=== PATIENT | male | born 2000 | race Two or more races ===

== ENCOUNTER 2020-12-30 02:13 | Emergency (ER) | payer BC, SELFPAY ==
--- NOTE | 2020-12-30 02:19 | CTR_ITS ---
PROCEDURE INFORMATION: Exam: CT Head Without Contrast Exam date and time: 12/30/2020 2:32 AM Age: 20 years old Clinical indication: Injury or trauma; Fall; Blunt trauma (contusions or hematomas); Patient HX: Sustained blow to right side of head. C/O headahce with nausea. Repeated due to motion. Best scan submitted. TECHNIQUE: Imaging protocol: Computed tomography of the head without contrast. Radiation optimization: All CT scans at this facility use at least one of these dose optimization techniques: automated exposure control; mA and/or kV adjustment per patient size (includes targeted exams where dose is matched to clinical indication); or iterative reconstruction. COMPARISON: CT head wo con* [id number] 03/10/2018 12:30 PM RADIATION DOSE METRICS: Total DLP (mGy-cm): 1177.16 FINDINGS: Brain: Normal. No hemorrhage. Unremarkable white matter. No mass effect. Cerebral ventricles: No ventriculomegaly. Paranasal sinuses: Visualized sinuses are unremarkable. No fluid levels. Mastoid air cells: Visualized mastoid air cells are well aerated. Bones/joints: No acute findings. Soft tissues: Unremarkable. Other findings: Mild motion degradation. CT/CT head wo con* [id number] IMPRESSION: No acute intracranial abnormality. Mild motion degradation. Radiation Dose CTDIVOL = (mGy): DLP = 1177.16 (mGy-cm)
[2020-12-30 02:20] VITALS: BP 144/115; PULSE 125; RESP 18; TEMP 36.7; O2SAT 100; BMI 19.5
--- NOTE | 2020-12-30 02:20 | ED_ITS ---
HPI - Trauma General: Chief Complaint: Head Injury Stated Complaint: Hit head on pipe Time Seen by Provider: 12/30/20 02:14 Source: patient Mode of arrival: ambulatory Limitations: no limitations History of Present Illness: HPI narrative: Hnjwu-[id number]-ahi male states he was walking up and hit his head on a pipe. This happened 1 hour ago. He states he is had some nausea and a headache he rates a 7 out of 10. He denies any worsening proving factors. Denies passing out. Denies any neck pain. Denies any other injuries Associated symptoms: Reports headache(s); Denies abdominal pain, back pain, chest pain, chills, dental pain, fever(s), nausea or vomiting Review of Systems Const: Denies: fever(s), chills, body aches or change in appetite Eyes: Denies: blurry vision or eye discomfort ENMT: Denies: throat pain or dental pain Card: Denies: chest pain Resp: Denies: dyspnea GI: Denies: abdominal pain, nausea, vomiting or diarrhea : Denies: dysuria Musc: Denies: neck pain or back pain Skin/Breast: Denies: rash Neuro: Reports: headache(s) Psych: Denies: depression Jai/Lymph: Denies: easy bruising All/Imm: Denies: urticaria Physical Exam Const: COMMON NORMALS: no acute distress, patient oriented x3 and healthy appearing HENMT: COMMON NORMALS: normocephalic and atraumatic HEAD & SCALP: normocephalic and atraumatic Eye: COMMON NORMALS: Equal, round and reactive pupils present and EOMs intact bilaterally PUPIL: Yes Equal, round and reactive pupils present Neck/C-Spine: COMMON NORMALS: full ROM and supple Chest: COMMONS NORMALS: normal inspection of the chest and normal palpation of entire chest wall Resp: COMMON NORMALS: normal respiratory effort, No retractions, No use of accessory muscles and clear to auscultation bilaterally AUSCULTATION: clear to auscultation bilaterally Cardio: COMMON NORMALS: regular rate, regular rhythm and No murmurs present (Cardio) RATE: regular rate RHYTHM: regular rhythm GI: COMMON NORMALS: Normal to inspection, nondistended, normoactive bowel sounds present, Soft to palpation, non-tender and no masses PALPATION: Yes Soft to palpation Extremity: COMMON NORMALS: normal to inspection and full ROM Neuro: COMMON NORMALS: patient oriented x3, moves all extremities and no focal motor deficits Psych: COMMON NORMALS: mental status grossly normal, Normal thought process present and cooperative THOUGHT PROCESS: Normal thought process present Skin: COMMON NORMALS: no rashes or lesions noted and no wounds GENERAL SKIN EXAM: no rashes or lesions noted Course Vital Signs: Vital signs: Vital Signs Temperature 98.1 F 12/30/20 02:20 Pulse Rate 125 H 12/30/20 02:20 Respiratory Rate 18 12/30/20 02:20 Blood Pressure 144/115 12/30/20 02:20 Pulse Oximetry 100 12/30/20 02:20 MDM - Trauma MDM Narrative: Medical decision making narrative: Patient presents with a closed head injury is well-appearing here. His CT scan here is normal with no acute findings. He is stable for discharge and is to follow-up his PCP and return if worsening. Patient eloped just before I was going to discharge him the CT findings and everything here was normal. Discharge Plan Discharge Patient Disposition: Home Clinical Impression: Closed head injury Qualifiers: Encounter type: initial encounter Qualified Code(s): S09.90XA - Unspecified injury of head, initial encounter Condition: Stable Discharge Orders: Discharge ED (Routine); Ordered 12/30/20 Ordered By: Kimberly Browne Discharge Diet: Advance as tolerated Discharge Activity: Resume usual activity Patient Instructions: Minor Head Injury (ED) Coding Level of Care Code ED Quality Assurance Practice Manager for Norma Villagomez Exam Comprehensive
--- NOTE | 2020-12-30 03:19 | PC.NURSE ---
Pt transfered back to room from CT and upon talking with Dr. Herrera departed the Hospital without DC.
[2020-12-30 03:23] VITALS: BP 114/86; PULSE 98; RESP 18; TEMP 36.6; O2SAT 100
== END 2020-12-30 03:28 | disposition home or self-care (01) ==
PROVIDERS: Emergency Provider Emergency Medicine
DX: S09.8XXA Other specified injuries of head, initial encounter (principal); W22.09XA Striking against other stationary object, initial encounter
CPT/HCPCS: 70450; 99282

== ENCOUNTER 2022-09-25 11:04 | Emergency (ER) | payer MEDICAID, SELFPAY ==
[2022-09-25 11:09] VITALS: BP 141/85; PULSE 82; RESP 16; TEMP 36.8; O2SAT 97
--- NOTE | 2022-09-25 11:27 | ED_ITS ---
HPI - Animal Bite General: Chief Complaint: Animal Bite Stated Complaint: dog bite to face Time Seen by Provider: 09/25/22 11:06 Source: patient Mode of arrival: ambulatory Limitations: no limitations History of Present Illness: Patient is a 22-year-old male who presents to ED today with a complaint of a dog bite to his face that he sustained 2 days ago after he was over at a neighbor's house and trying to pet the dog. Dog is unknown on immunization status. It is an inside dog and reportedly was acting normal. Patient did not file a police report. He thinks the dog will be able to be quarantined but will need to speak to the owners again. He states he has had some swelling to the bite rodger. No redness, drainage. No fevers. Last tetanus was 7 years ago. complaint: animal bite Onset (ago): day(s) (2 days ago) Animal: dog Description of animal: household pet (neighbor's dog), immunizations unknown and appeared well Mechanism: bite Location: face Context: provoked Associated symptoms: Reports no associated symptoms; Deny chills or fever(s) Related Data: Patient tetanus UTD: Yes (7 years ago) Review of Systems Const: Denies: fever(s), chills, body aches, fatigue or malaise Skin/Breast: Reports: other (dog bite to face) [facility] ED PFSH: Medical History Psychiatric care Social History Smoking and tobacco status: current every day smoker Alcohol intake: current Physical Exam Const: COMMON NORMALS: no acute distress, patient oriented x3, no limitations, alert and well nourished GENERAL APPEARANCE: cooperative ORIENTATION/CONSCIOUSNESS: Yes awake, Yes oriented to person, Yes oriented to place and Yes oriented to time HENMT: COMMON NORMALS: normocephalic, atraumatic and Normal external nose present HEAD & SCALP: normal to inspection, normocephalic and atraumatic FACE & SINUS IMAGES: 1. small 3mm laceration; healing-occurred 2 days ago; no redness/drainage; localized swelling; does not appear to be through and through NOSE: Normal external nose present Resp: COMMON NORMALS: normal respiratory effort and clear to auscultation b ilaterally AUSCULTATION: clear to auscultation bilaterally Cardio: COMMON NORMALS: regular rate and regular rhythm RATE: regular rate RHYTHM: regular rhythm Neuro: COMMON NORMALS: patient oriented x3 SENSORIUM/ORIENTATION: Yes alert, Yes oriented to person, Yes oriented to place and Yes oriented to time Course Vital Signs: Vital signs: Vital Signs Temperature 98.3 F 09/25/22 11:09 Pulse Rate 82 09/25/22 11:09 Respiratory Rate 16 09/25/22 11:09 Blood Pressure 141/85 09/25/22 11:09 Pulse Oximetry 97 09/25/22 11:09 MDM - Animal Bite Medical Decision Making Tetanus updated. Wound is small and occurred over 48 hours ago-this is going to be best to leave open. He will be placed on abx. Recommend he file police report and they can have animal control help determine animal's immunization status and quarantine instructions. Return to ED precautions given. Discharge Plan Discharge Patient Disposition: Home Clinical Impression: Dog bite Qualifiers: Encounter type: initial encounter Qualified Code(s): W54.0XXA - Bitten by dog, initial encounter Condition: Stable Prescriptions: New amoxicillin-pot clavulanate 875-125 mg tablet 1 tab PO BID Qty: 14 0RF Discharge Orders: Discharge ED (Routine); Ordered 09/25/22 Ordered By: Cristina Orozco Patient Instructions: Animal Bite (ED) Coding Level of Care Code ED Bus Inspector for Norma Villagomez
[2022-09-25] MEDS: tetanus-diphtheria tox (adult) 0.5 mL SDV IM (12:03)
== END 2022-09-25 12:08 | disposition home or self-care (01) ==
PROVIDERS: Emergency Provider Physician Assistant
DX: S01.551A Open bite of lip, initial encounter (principal); W54.0XXA Bitten by dog, initial encounter; F17.210 Nicotine dependence, cigarettes, uncomplicated; Z23 Encounter for immunization
CPT/HCPCS: 90471; 90714; 99283

== ENCOUNTER 2022-11-09 07:14 | Emergency (ER) | payer BC, MEDICAID, SELFPAY ==
[2022-11-09] VITALS (78 sets, daily range): BP systolic 108–142; BP diastolic 60–96; PULSE 39–136; RESP 1–27; TEMP 36.9; O2SAT 96–100
--- NOTE | 2022-11-09 07:19 | CT_ITS ---
WS: [id number] CT HEAD NONCONTRAST HISTORY: closed head injury TECHNIQUE: Contiguous axial imaging performed through the brain in 3.0 mm imaging. Bone and soft tiss ue windows. Sagittal and coronal reformats reviewed. All CT scans at [facility] use at least one of these dose optimization techniques: automated exposure control; mA and/or kV adjustment per pa tient size (includes targeted exams where dose is matched to clinical indication); or iterative recon struction. DLP: 1525.76 mGy.cm COMPARISON: None available. No acute intracranial hemorrhage, midline shift or mass effect. No atrophy or prior infarcts or herniation. Ventricles: Normal size with no hydrocephalus. No inferior displacement of cerebellar tonsils. Paranasal sinuses: Air-fluid level RIGHT maxillary sinus. Mastoid air cells: Well pneumatized. Calvarium and scalp: Skull is intact with no soft tissue edema or swelling. CT/CT head wo con* [id number] IMPRESSION: 1. Negative head CT. 2. Small air-fluid level RIGHT maxillary sinus.
--- NOTE | 2022-11-09 07:20 | XR_ITS ---
WS: [id number] XR chest 1V portable [id number] REASON FOR EXAM: dyspnea/cough FINDINGS: Chest is unchanged compared to 03/10/2018. The heart and mediastinum are within normal limits. Calcified granulomatous disease bilaterally. No acute or subacute pulmonary parenchymal or pleural abnormality. Bony thorax is intact without significant abnormality. XR/XR chest 1V portable [id number] IMPRESSION: No acute chest abnormality.
--- NOTE | 2022-11-09 07:21 | ED_ITS ---
HPI - Seizure General: Chief Complaint: Trauma Stated Complaint: AMS Time Seen by Provider: 11/09/22 07:19 Source: patient Mode of arrival: EMS History of Present Illness: HPI Narrative: 22-year-old male brought in by EMS. He was noted to have seizures and witnessed by bystanders he was given 2 mg Ativan and then 2 more milligram where he appeared to have a second seizure. No seizure history per the family or the patient when he later woke up. Family members were present and there has been some difficulty in relationships amongst the family recently and they have not been allowing him to stay in their homes. So he had been staying at a homeless long-term last night. They were concerned today because they were not aware where he was that they were not able to find him last night. There was some comments made that he had threatened other family members and they wanted him to get evaluated for mental health. See medical decision making. Onset (ago): minute(s) Description of Episode: tonic-clonic movement Witnessed: Yes - by EMS Place: Homeless long-term Treatments prior to arrival: benzodiazepines Review of Systems General: Reports: ROS unobtainable due to medical condition and ROS unobtainable due to mental status [facility] ED PFSH: Medical History Psychiatric care Social History (System 11/09/22 @ 16:12 by Stefania Barakat) Smoking and tobacco status: current every day smoker Alcohol intake: current Supplemental [facility] Information: due to medical condition and due to mental status Physical Exam Const: GENERAL APPEARANCE: cooperative and comfortable ORIEN TATION/CONSCIOUSNESS: Yes confused HENMT: COMMON NORMALS: normocephalic, atraumatic and hearing grossly normal bilaterally HEAD & SCALP: normocephalic and atraumatic Resp: COMMON NORMALS: normal respiratory effort, No retractions, No use of accessory muscles and clear to auscultation bilaterally AUSCULTATION: clear to auscultation bilaterally Cardio: COMMON NORMALS: regular rate, regular rhythm and No murmurs present (Cardio) RATE: regular rate RHYTHM: regular rhythm GI: COMMON NORMALS: Soft to palpation and No hepatosplenomegaly present AUSCULTATION: Yes normoactive bowel sounds PALPATION: Yes Soft to palpation, No Tenderness to palpation present (GI), No Guarding due to palpation present (GI) and Yes No hepatosplenomegaly present Extremity: COMMON NORMALS: normal to inspection, capillary refill normal, no clubbing, cyanosis or edema, no calf tenderness and no pedal edema Skin: COMMON NORMALS: no rashes or lesions noted GENERAL SKIN EXAM: no rashes or lesions noted Course Vital Signs: Vital signs: Vital Signs Temperature 98.4 F 11/09/22 07:16 Pulse Rate 69 11/09/22 14:00 Respiratory Rate 12 11/09/22 14:00 Blood Pressure 126/93 11/09/22 14:30 Pulse Oximetry 100 11/09/22 14:00 Oxygen Delivery Me thod 11/09/22 14:00 MDM - Seizure MDM Narrative Medical decision making narrative: Patient was given 4 mg of Ativan for seizure before he arrived. He remains sedated for long period time eventually did wake up he was positive for methamphetamines and his CPK was slightly elevated he was given some IV fluids and monitored. Woke up he is awake and alert and active. There was some comments by the family that he has some psychiatric issues but he denied being homicidal or suicidal and family did not express any interest in having the patient 96d. Patient will be discharged home where he was given Keppra when he first arrived they did not discharge patient on Keppra with believe his seizure was secondary to methamphetamine use encourage abstinence from methamphetamine follow-up with neurology. Medical Records Attestation: I reviewed the patient's medical records. Lab Data Attestation: I reviewed the patient's lab results. 11/09/22 07:00 11/09/22 07:00 Labs: Radiology Impressions Head CT 11/09/22 07:19 IMPRESSION: 1. Negative head CT. 2. Small air-fluid level RIGHT maxillary sinus. Chest X-Ray 11/09/22 07:20 IMPRESSION: No acute chest abnormality. Cervical Spine CT 11/09/22 07:32 IMPRESSION: Normal cervical spine. Laboratory Results WBC 13.2 10^3/uL (4.0-10.0) H 11/09/22 07:00 RBC 4.43 10^6/uL (4.1-5.3) 11/09/22 07:00 Hgb 13.9 g/dL (11.7-16.6) 11/09/22 07:00 Hct 41.9 % (42.0-52.0) L 11/09/22 07:00 MCV 94.6 fl (80-94) H 11/09/22 07:00 MCH 31.4 pg (28.0-34.0) 11/09/22 07:00 MCHC 33.2 g/dL (30.0-36.0) 11/09/22 07:00 RDW 13.4 % (12.1-15.1) 11/09/22 07:00 Plt Count 215 10^3/cmm (130-400) 11/09/22 07:00 MPV 11.0 fL (7.4-10.4) H 11/09/22 07:00 Neut % (Auto) 80.0 % 11/09/22 07:00 Lymph % (Auto) 10.3 % 11/09/22 07:00 Long % (Auto) 7.1 % 11/09/22 07:00 Eos % (Auto) 1.5 % 11/09/22 07:00 Baso % (Auto) 0.7 % 11/09/22 07:00 Neut # (Auto) 10.53 10^3/uL (1.8-7.7) H 11/09/22 07:00 Lymph # (Auto) 1.4 10^3/uL (0.8-4.8) 11/09/22 07:00 Long # (Auto) 0.9 10^3/uL (0.2-0.9) 11/09/22 07:00 Eos # (Auto) 0.2 10^3/uL (0.0-0.8) 11/09/22 07:00 Baso # (Auto) 0.1 10^3/uL (0.0-0.1) 11/09/22 07:00 Nucleated RBC % (auto) 0 % 11/09/22 07:00 Nucleated RBCs # 0.0 /100WBC 11/09/22 07:00 Sodium 141 mmol/L (136-145) 11/09/22 07:00 Potassium 3.8 mmol/L (3.5-5.1) 11/09/22 07:00 Chloride 104 mmol/L (98-107) 11/09/22 07:00 Carbon Dioxide 21 mmol/L (22-29) L 11/09/22 07:00 Anion Gap 19.8 (5-19) H 11/09/22 07:00 BUN 17 mg/dL (6-20) 11/09/22 07:00 Creatinine 1.1 mg/dL (0.7-1.2) 11/09/22 07:00 GFR Calculation 83.0 mL/min (90-130) L 11/09/22 07:00 Glucose 115 mg/dL (65-115) 11/09/22 07:00 POC Glucose 91 mg/dL (70-110) 11/09/22 07:19 Calculated Osmolality 294 mOsm/kg (285-295) 11/09/22 07:00 Calcium 8.7 mg/dL (8.5-10.5) 11/09/22 07:00 Total Bilirubin 0.4 mg/dL (0.15-1.2) 11/09/22 07:00 AST 85 U/L (0-40) H 11/09/22 07:00 ALT 33 U/L (0-41) 11/09/22 07:00 Alkaline Phosphatase 85 U/L (40-130) 11/09/22 07:00 Creatine Kinase 348 U/L (39-308) H* 11/09/22 07:00 Total Protein 6.6 g/dL (6.6-8.7) 11/09/22 07:00 Albumin 4.1 g/dL (3.5-5.2) 11/09/22 07:00 Globulin 2.5 g/dL (1.3-4.6) 11/09/22 07:00 Urine Color Yellow (Yellow) 11/09/22 07:52 Urine Appearance Clear (CLEAR) 11/09/22 07:52 Urine pH 5 (5-7) 11/09/22 07:52 Ur Specific [place] 1.025 (1.005-1.030) 11/09/22 07:52 Urine Protein Trace (Negative) 11/09/22 07:52 Urine Glucose (UA) Norm (Normal) 11/09/22 07:52 Urine Ketones 1+ (Negative) H 11/09/22 07:52 Urine Blood 2+ (Negative) H 11/09/22 07:52 Urine Nitrate Negative (Negative) 11/09/22 07:52 Urine Bilirubin Neg (Negative) 11/09/22 07:52 Urine Urobilinogen Neg mg/dL (Negative) 11/09/22 07:52 Ur Leukocyte Esterase Negative (Negative) 11/09/22 07:52 Urine RBC 10-15 /hpf (0-2) H 11/09/22 07:52 Urine WBC 25-40 /hpf (0-5) H 11/09/22 07:52 Ur Squamous Epith Cells 0-4 /hpf (0-5) H 11/09/22 07:52 Amorphous Sediment Not Reportable 11/09/22 07:52 Urine Bacteria Trace /hpf (NONE) 11/09/22 07:52 Hyaline Casts 0-4 /lpf H 11/09/22 07:52 Urine Mucus 1+ /hpf 11/09/22 07:52 Salicylates < 0.3 mg/dL (3-10) L 11/09/22 07:00 Urine Opiates Screen Negative ng/mL (Negative) 11/09/22 07:52 Acetaminophen < 5.0 ug/mL (10-30) L 11/09/22 07:00 Ur Barbiturates Screen Negative ng/mL (Negative) 11/09/22 07:52 Ur Phencyclidine Scrn Negative ng/mL (Negative) 11/09/22 07:52 Ur Amphetamines Screen Positive ng/mL (Negative) H 11/09/22 07:52 U Benzodiazepines Scrn Negative ng/mL (Negative) 11/09/22 07:52 Urine Cocaine Screen Negative ng/mL (Negative) 11/09/22 07:52 U Marijuana (THC) Screen Positive ng/mL (Negative) H 11/09/22 07:52 Ethyl Alcohol < 10 mg/dL (0-10) 11/09/22 07:00 Discharge Plan Discharge Patient Disposition: Home Clinical Impression: Seizure Condition: Stable Prescriptions: New doxycycline hyclate 100 mg capsule 100 mg PO BID 14 Days Qty: 28 0RF No Action amoxicillin-pot clavulanate 875-125 mg tablet 1 tab PO BID Qty: 14 0RF Discharge Orders: Discharge ED (Routine); Ordered 11/09/22 Ordered By: Saturnino Mansfield Discharge Diet: Usual diet Discharge Activity: Increase activity as tolerated Patient Instructions: Opioid Safety, Pain Management Activity Restrictions/Additional Instructions: You are seen today after a seizure. The paramedics had given you Ativan which caused significant amount of sedation. Your seizure was likely triggered by the use of methamphetamines. Recommend that you avoid methamphetamines in the future. Case management make arrangements for follow-up with neurology. Coding Level of Care Code ED Floorperson for Norma Villagomez
[2022-11-09 07:25] LABS: Glucose Point of Care 91 mg/dL (70-110)
--- NOTE | 2022-11-09 07:32 | CT_ITS ---
WS: [id number] CT CERVICAL SPINE HISTORY: trauma TECHNIQUE: Contiguous 2.0 mm axial imaging performed through the entire cervical spine. Sagittal and coronal reformats also performed. All CT scans at [facility] use at least one of these dose o ptimization techniques: automated exposure control; mA and/or kV adjustment per patient size (include s targeted exams where dose is matched to clinical indication); or iterative reconstruction. DLP: 1525.76 mGy.cm COMPARISON: None available. Normal cervical alignment. Craniocervical junction, atlantodental interval and C1-C2 alignment is nor mal. C2-C3: Normal. C3-C4: Normal. C4-C5: Normal. C5-C6: Normal. C6-C7: Normal. C7-T1: Normal. Soft tissues are normal. Lung apices are clear. CT/CT cervical spin wo con* [id number] IMPRESSION: Normal cervical spine.
[2022-11-09 07:37] LABS: Basophils # 0.1 10^3/uL (0.0-0.1); Basophils % 0.7 %; Eosinophils # 0.2 10^3/uL (0.0-0.8); Eosinophils % 1.5 %; Hematocrit 41.9 % (42.0-52.0); Hemoglobin 13.9 g/dL (11.7-16.6); Lymphocytes # 1.4 10^3/uL (0.8-4.8); Lymphocytes % 10.3 %; Mean Corpuscular HGB Conc 33.2 g/dL (30.0-36.0); Mean Corpuscular Hemoglobin 31.4 pg (28.0-34.0); Mean Corpuscular Volume 94.6 fl (80-94); Monocytes # 0.9 10^3/uL (0.2-0.9); Monocytes % 7.1 %; Neutrophils # 10.53 10^3/uL (1.8-7.7); Nucleated Red Blood Cells % 0 %; Platelet Count 215 10^3/cmm (130-400); Red Blood Count 4.43 10^6/uL (4.1-5.3); Red Cell Distribution Width 13.4 % (12.1-15.1); White Blood Count 13.2 10^3/uL (4.0-10.0)
--- NOTE | 2022-11-09 07:46 | ECG_ITS ---
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 Measurements Intervals [place] Rate: 80 P: -48 DC: 131 QRS: 84 QRSD: 86 T: 73 QT: 375 QTc: 433 Interpretive Statements SINUS RHYTHM No previous ECG available for comparison Electronically Signed On 11-09-2022 16:39:05 CDT by Zak George M.D. [email or web address]
[2022-11-09 07:58] LABS: Alanine Aminotransferase 33 U/L (0-41); Albumin Level 4.1 g/dL (3.5-5.2); Alkaline Phosphatase 85 U/L (40-130); Anion Gap 19.8 (5-19); Aspartate Amino Transferase 85 U/L (0-40); Blood Urea Nitrogen 17 mg/dL (6-20); Calcium 8.7 mg/dL (8.5-10.5); Carbon Dioxide 21 mmol/L (22-29); Chloride 104 mmol/L (98-107); Globulin 2.5 g/dL (1.3-4.6); Glucose 115 mg/dL (65-115); Osmolality Calculated 294 mOsm/kg (285-295); Potassium 3.8 mmol/L (3.5-5.1); Sodium 141 mmol/L (136-145); Total Bilirubin 0.4 mg/dL (0.15-1.2); Total Protein 6.6 g/dL (6.6-8.7)
[2022-11-09 08:07] LABS: Acetaminophen < 5.0 ug/mL (10-30); Alcohol Level < 10 mg/dL (0-10); Salicylate < 0.3 mg/dL (3-10)
[2022-11-09 08:09] LABS: Creatine Phosphokinase 348 U/L (39-308)
[2022-11-09 08:11] LABS: Amphetamines Screen Urine Positive (Negative); Barbiturates Screen Urine Negative (Negative); Benzodiazepines Screen Urine Negative (Negative); Cocaine Screen Urine Negative (Negative); Opiate Screen Urine Negative (Negative); PCP Screen Urine Negative (Negative); THC Screen Urine Positive (Negative)
[2022-11-09 08:19] LABS: Add Urine Microscopic? YES; Bilirubin Urine Neg (Negative); Blood Urine 2+ (Negative); Glucose Urine UA Norm (Normal); Ketones Urine 1+ (Negative); Leukocyte Esterase Urine Negative (Negative); Nitrate Urine Negative (Negative); Protein Urine Trace (Negative); Specific Gravity, Urine 1.025 (1.005-1.030); Urine Appearance Clear (CLEAR); Urine Color Yellow (Yellow); Urobilinogen Urine Neg (Negative); pH Urine 5 (5-7)
[2022-11-09 08:37] LABS: Add Urine Culture? Yes; Bacteria Urine TRACE /hpf; Hyaline Casts Urine 0-4 /lpf; Mucus Urine 1+ /hpf; Squamous Epithelial Cell Urine 0-4 /hpf (0-5); WBC Urine 25-40 /hpf (0-5)
[2022-11-09] MEDS: sodium chloride 0.9% 1,000 ML 999 ML IV ×2 (09:52→11:29)
[2022-11-09] MEDS: cefTRIAXone 1,000 MG in sodium chloride 0.9% (plus) 50 ML 100 MG IV (10:05)
--- NOTE | 2022-11-10 10:10 | DCPLANNER ---
Addendum entered by Cha Huff 12/19/22 14:15: Patient had a followup appointment scheduled with neurology - patient did attend appointment. Addendum entered by Cha Huff 11/16/22 07:28: Patient has a follow up appointment scheduled for Sunday, December 04, 2022 at 1:[address] Arango at neurology. Original Note: manager servicing had message to schedule a follow up appointment for patient with neurology. manager servicing sent patients information to the front office staff at neurology. Patients information will be printed and reviewed. Clinic will call patient with appointment information.
--- NOTE | 2022-11-15 14:13 | DCPLANNER ---
medical care manager called patient due to no primary care physician - no answer at this time
== END 2022-11-09 15:05 | disposition home or self-care (01) ==
PROVIDERS: Emergency Provider Family Medicine
DX: R56.9 Unspecified convulsions (principal); F17.210 Nicotine dependence, cigarettes, uncomplicated
CPT/HCPCS: 36415; 36416; 70450; 71045; 72125; 80053; 80306; 80307; 81001; 82550; 82962; 85025; 87040; 87086; 93005; 96365; 99285; J0696; J7030

== ENCOUNTER 2022-11-21 11:28 | Emergency (ER) | payer BC, MEDICAID, SELFPAY ==
[2022-11-21 11:34] VITALS: BP 142/77; PULSE 85; TEMP 36.8; O2SAT 100; BMI 20.9
--- NOTE | 2022-11-21 11:49 | ED_ITS ---
HPI - Dental/Oral General: Chief complaint: Dental/Oral Stated complaint: Tooth pain Time Seen by Provider: 11/21/22 11:44 History of Present Illness: Patient is a 22-year-old male comes to the ED with left dental pain. Symptoms started several weeks ago. Patient says he is had this tooth infection now for over a year and it comes and goes. He was recently put on doxycycline for dental infection but says its not helping. Denies any other symptoms. Patient says he is currently trying to call around to get set up with a dentist. Associated symptoms: Denies fever(s) or odynophagia Review of Systems Const: Denies: fever(s), chills or fatigue Eyes: Denies: change in vision or eye discomfort ENMT: Reports: dental pain; Denies: throat pain, odynophagia, nasal discharge or nasal congestion Card: Denies: chest pain, palpitations, edema, swelling of feet/ankles, dyspnea on exertion or orthopnea Resp: Denies: dyspnea, productive cough or non-productive cough GI: Denies: abdominal pain, nausea, vomiting, diarrhea, constipation or hematochezia : Denies: flank pain, difficulty urinating, dysuria or hematuria Musc: Denies: neck pain, back pain or extremity swelling Skin/Breast: Denies: rash or new lesions Neuro: Denies: headache(s), numbness in extremities or weakness in extremities PFSH ED PFSH: Medical History (Updated 11/21/22 @ 15:13 by EMERSON Willoughby) No pertinent family history Psychiatric care Surgical History (Updated 11/21/22 @ 15:13 by EMERSON Willoughby) No pertinent past surgical history Social History Smoking and tobacco status: current every day smoker Alcohol intake: current Physical Exam Const: COMMON NORMALS: patient oriented x3 HENMT: COMMON NORMALS: normocephalic HEAD & SCALP: normocephalic MOUTH: Normal oral and palatal mucosa present TEETH & GINGIVA: Yes poor dentition THROAT: posterior oropharynx normal and uvula midline Neck/C-Spine: COMMON NORMALS: supple GENERAL: Yes normal visual inspection Resp: COMMON NORMALS: normal respiratory effort, No retractions, No use of accessory muscles and clear to auscultation bilaterally AUSCULTATION: clear to auscultation bilaterally Cardio: COMMON NORMALS: regular rate, regular rhythm, S1 normal heart sound present, S2 normal heart sound present, No gallops present (Cardio), No clicks present (Cardio), No murmurs present (Cardio) and Peripheral pulses 2+ throughout RATE: regular rate RHYTHM: regular rhythm HEART SOUNDS: S1 normal heart sound present and S2 normal heart sound present PERIPHERAL PULSES: Peripheral pulses 2+ throughout GI: COMMON NORMALS: Normal to inspection, nondistended, normoactive bowel sounds present, Soft to palpation, non-tender and no masses PALPATION: Yes Soft to palpation : COMMON NORMALS: Yes no CVA tenderness BLADDER/KIDNEY EXAM: Yes no CVA tenderness Back/Pelvis: COMMON NORMALS: no CVA tenderness Extremity: COMMON NORMALS: normal to inspection Neuro: COMMON NORMALS: patient oriented x3 GAIT: Yes Normal gait present Skin: GENERAL SKIN EXAM: dry skin Course Vital Signs: Vital signs: Vital Signs Temperature 98.2 F 11/21/22 11:34 Pulse Rate 85 11/21/22 11:34 Blood Pressure 142/77 11/21/22 11:34 Pulse Oximetry 100 11/21/22 11:34 Oxygen Delivery Me thod Room Air 11/21/22 11:34 MDM - Dental/Oral Medical Decision Making Patient is a 22-year-old male comes to the ED with left dental pain. Symptoms started several weeks ago. Patient says he is had this tooth infection now for over a year and it comes and goes. He was recently put on doxycycline for dental infection but says its not helping. Denies any other symptoms. Patient says he is currently trying to call around to get set up with a dentist. Vital stable. Patient appears nontoxic in no acute distress or pain. Patient has poor dentition. He was stable for discharge home diagnosed with dental infection. He was sent home with a prescription for clindamycin and told to follow-up with dentist as soon as possible to have dental infection treated. Patient understood agree with plan. Discharge Plan Discharge Patient Disposition: Home Clinical Impression: Dental infection Condition: Stable Prescriptions: New clindamycin HCl 150 mg capsule 300 mg PO QID 7 Days Qty: 56 0RF No Action amoxicillin-pot clavulanate 875-125 mg tablet 1 tab PO BID Qty: 14 0RF doxycycline hyclate 100 mg capsule 100 mg PO BID 14 Days Qty: 28 0RF Discharge Orders: Discharge ED (Routine); Ordered 11/21/22 Ordered By: Jerald Thomas Discharge Diet: Regular Discharge Activity: Increase activity as tolerated Patient Instructions: Dental Abscess (ED) Activity Restrictions/Additional Instructions: Follow-up with with dentist as soon as possible to have dental infection treated. Take medications as prescribed. Return to the ER or your medical provider if condition worsens. Please read and understand discharge instructions. Thank you for choosing [facility] for your healthcare needs today. Please realize this is an emergency room and that we are providing you with a medical screening exam and this may not be complete and all inclusive of all the testing and or work up that you may need to determine your ailment or severity of your illness. It is very important that you follow up as instructed or that you return to the Emergency Department should you have concerns or if your condition changes or worsens in any way. Coding Level of Care Code ED Ash Collector for Norma Villagomez
--- NOTE | 2022-11-24 12:48 | DCPLANNER ---
biofuels engineering manager called patient due to no primary care physician - no answer at this time
== END 2022-11-21 11:56 | disposition home or self-care (01) ==
PROVIDERS: Emergency Provider Physician Assistant
DX: K04.7 Periapical abscess without sinus (principal); F17.210 Nicotine dependence, cigarettes, uncomplicated
CPT/HCPCS: 99283

== ENCOUNTER 2023-01-24 02:45 | Inpatient (IN) | payer BC, MEDICAID, SELFPAY ==
[2023-01-24 02:46] VITALS: BMI 21.6
[2023-01-24 02:49] VITALS: BP 137/99; PULSE 109; TEMP 36.9; O2SAT 98
--- NOTE | 2023-01-24 03:59 | W.ED.ANXIETY ---
HPI - Anxiety General: Chief Complaint: Anxiety Stated Complaint: MHE Time Seen by Provider: 01/24/23 02:48 Source: patient and police Mode of arrival: other (police) Limitations: no limitations History of Present Illness: 20-year-old male presents here with police for paranoia. He states that his mother called the police as he had been watching TV and using his seeing things in the corner he states been having a hard time sleeping to. He appears very paranoid he carries very careful when he is answering questions and is slow to answer questions but does appear very paranoid. He denies SI or HI he does admit to some drug abuse. Associated symptoms: Deny chest pain, chills, fever(s), headache(s), nausea or vomiting Review of Systems Const: Denies: fever(s), chills, body aches or change in appetite Eyes: Denies: eye discomfort ENMT: Denies: throat pain or dental pain Card: Denies: chest pain Resp: Denies: dyspnea GI: Denies: abdominal pain, nausea, vomiting or diarrhea Musc: Denies: neck pain or back pain Skin/Breast: Denies: rash Neuro: Denies: headache(s) Psych: Reports: anxiety and paranoia; Denies: depression Physical Exam Const: COMMON NORMALS: patient oriented x3 HENMT: COMMON NORMALS: normocephalic and atraumatic HEAD & SCALP: normocephalic and atraumatic Neck/C-Spine: COMMON NORMALS: full ROM and supple Chest: COMMONS NORMALS: normal inspection of the chest and normal palpation of entire chest wall Resp: COMMON NORMALS: normal respiratory effort, No retractions, No use of accessory muscles and clear to auscultation bilaterally AUSCULTATION: clear to auscultation bilaterally Cardio: COMMON NORMALS: regular rate, regular rhythm and No murmurs present (Cardio) RATE: regular rate RHYTHM: regular rhythm GI: COMMON NORMALS: Normal to inspection, nondistended, normoactive bowel sounds present, Soft to palpation, non-tender and no masses PALPATION: Yes Soft to palpation Extremity: COMMON NORMALS: normal to inspection and full ROM Neuro: COMMON NORMALS: patient oriented x3, moves all extremities and no focal motor deficits Psych: COMMON NORMALS: mental status grossly normal and cooperative SPEECH: Yes minimal MOOD & AFFECT: Yes anxious and Yes fearful THOUGHT CONTENT: Yes delusions Skin: COMMON NORMALS: no rashes or lesions noted and no wounds GENERAL SKIN EXAM: no rashes or lesions noted Course Vital Signs: Vital signs: Vital Signs Temperature 98.3 F 01/24/23 15:27 Pulse Rate 92 01/24/23 15:27 Respiratory Rate 16 01/24/23 15:27 Blood Pressure 140/100 01/24/23 15:27 Pulse Oximetry 97 01/24/23 15:27 Oxygen Delivery Me thod Room Air 01/24/23 15:27 MDM - Anxiety Medical Decision Making Patient presents here with acute psychosis he is quite paranoid here I did have evaluated Dr. Hudson I spoke to Dr. Hudson who agrees that patient appears to be acutely psychotic he does not feel like he is safe on his own due to his paranoia is at this time. We will place patient under 96-hour hold and admit to the psychiatric unit. Lab Data 01/24/23 04:34 01/24/23 04:34 Laboratory Results WBC 12.5 10^3/uL (4.0-10.0) H 01/24/23 04:34 RBC 5.38 10^6/uL (4.1-5.3) H 01/24/23 04:34 Hgb 16.7 g/dL (11.7-16.6) H 01/24/23 04:34 Hct 50.5 % (42.0-52.0) 01/24/23 04:34 MCV 93.9 fl (80-94) 01/24/23 04:34 MCH 31.0 pg (28.0-34.0) 01/24/23 04:34 MCHC 33.1 g/dL (30.0-36.0) 01/24/23 04:34 RDW 12.8 % (12.1-15.1) 01/24/23 04:34 Plt Count 259 10^3/cmm (130-400) 01/24/23 04:34 MPV 10.2 fL (7.4-10.4) 01/24/23 04:34 Neut % (Auto) 70.8 % 01/24/23 04:34 Lymph % (Auto) 18.0 % 01/24/23 04:34 [place] % (Auto) 8.9 % 01/24/23 04:34 Eos % (Auto) 0.8 % 01/24/23 04:34 Baso % (Auto) 1.0 % 01/24/23 04:34 Neut # (Auto) 8.89 10^3/uL (1.8-7.7) H 01/24/23 04:34 Lymph # (Auto) 2.3 10^3/uL (0.8-4.8) 01/24/23 04:34 [place] # (Auto) 1.1 10^3/uL (0.2-0.9) H 01/24/23 04:34 Eos # (Auto) 0.1 10^3/uL (0.0-0.8) 01/24/23 04:34 Baso # (Auto) 0.1 10^3/uL (0.0-0.1) 01/24/23 04:34 Nucleated RBC % (auto) 0 % 01/24/23 04:34 Nucleated RBCs # 0.0 /100WBC 01/24/23 04:34 Sodium 139 mmol/L (136-145) 01/24/23 04:34 Potassium 3.8 mmol/L (3.5-5.1) 01/24/23 04:34 Chloride 99 mmol/L (98-107) 01/24/23 04:34 Carbon Dioxide 25 mmol/L (22-29) 01/24/23 04:34 Anion Gap 18.8 (5-19) 01/24/23 04:34 BUN 13 mg/dL (6-20) 01/24/23 04:34 Creatinine 1.1 mg/dL (0.7-1.2) 01/24/23 04:34 GFR Calculation 84.5 mL/min (90-130) L 01/24/23 04:34 Glucose 107 mg/dL (65-115) 01/24/23 04:34 Calculated Osmolality 289 mOsm/kg (285-295) 01/24/23 04:34 Calcium 9.9 mg/dL (8.5-10.5) 01/24/23 04:34 Total Bilirubin 1.4 mg/dL (0.15-1.2) H 01/24/23 04:34 AST 24 U/L (0-40) 01/24/23 04:34 ALT 10 U/L (0-41) 01/24/23 04:34 Alkaline Phosphatase 81 U/L (40-130) 01/24/23 04:34 Total Protein 8.2 g/dL (6.6-8.7) 01/24/23 04:34 Albumin 5.2 g/dL (3.5-5.2) 01/24/23 04:34 Globulin 3.0 g/dL (1.3-4.6) 01/24/23 04:34 Salicylates < 0.3 mg/dL (3-10) L 01/24/23 04:34 Acetaminophen < 5.0 ug/mL (10-30) L 01/24/23 04:34 Ethyl Alcohol < 10 mg/dL (0-10) 01/24/23 04:34 Discharge Plan Discharge Patient Disposition: Admitted As Inpatient Admit Provider: Blanco Hudson Clinical Impression: Acute psychosis Condition: Stable Coding Level of Care Code ED Irrigation Teacher for Norma Villagomez
--- NOTE | 2023-01-24 04:10 | PC.NURSE ---
Pt refused mediation on MAR at this time.
--- NOTE | 2023-01-24 04:15 | PC.NURSE ---
Dr. Browne, track laying supervisor, RNx3 to bedside to speak with pt about being placed on 96 hour hold. Pt became angry stating things such as he was going to leave. Verbal deescalation was used to calm pt down.
[2023-01-24 04:38] LABS: Basophils # 0.1 10^3/uL (0.0-0.1); Eosinophils # 0.1 10^3/uL (0.0-0.8); Eosinophils % 0.8 %; Hematocrit 50.5 % (42.0-52.0); Hemoglobin 16.7 g/dL (11.7-16.6); Lymphocytes # 2.3 10^3/uL (0.8-4.8); Mean Corpuscular HGB Conc 33.1 g/dL (30.0-36.0); Mean Corpuscular Volume 93.9 fl (80-94); Mean Platelet Volume 10.2 fL (7.4-10.4); Monocytes # 1.1 10^3/uL (0.2-0.9); Monocytes % 8.9 %; Neutrophils # 8.89 10^3/uL (1.8-7.7); Neutrophils % 70.8 %; Nucleated Red Blood Cells % 0 %; Platelet Count 259 10^3/cmm (130-400); Red Blood Count 5.38 10^6/uL (4.1-5.3); Red Cell Distribution Width 12.8 % (12.1-15.1); White Blood Count 12.5 10^3/uL (4.0-10.0)
[2023-01-24 04:59] LABS: Alanine Aminotransferase 10 U/L (0-41); Albumin Level 5.2 g/dL (3.5-5.2); Alkaline Phosphatase 81 U/L (40-130); Anion Gap 18.8 (5-19); Aspartate Amino Transferase 24 U/L (0-40); Blood Urea Nitrogen 13 mg/dL (6-20); Calcium 9.9 mg/dL (8.5-10.5); Carbon Dioxide 25 mmol/L (22-29); Chloride 99 mmol/L (98-107); Glomerular Filtration Rate 84.5 mL/min (90-130); Glucose 107 mg/dL (65-115); Osmolality Calculated 289 mOsm/kg (285-295); Potassium 3.8 mmol/L (3.5-5.1); Sodium 139 mmol/L (136-145); Total Bilirubin 1.4 mg/dL (0.15-1.2); Total Protein 8.2 g/dL (6.6-8.7)
--- NOTE | 2023-01-24 05:11 | PC.NURSE ---
Pt served copy of 96 Hour Rights paperwork by physical, this nurse and security. Pt refusing blood draw and making remarks as though he is going to try to leave regardless of 96 hour hold.
[2023-01-24 05:16] LABS: Acetaminophen < 5.0 ug/mL (10-30); Alcohol Level < 10 mg/dL (0-10); Salicylate < 0.3 mg/dL (3-10)
[2023-01-24 05:35] VITALS: BP 143/86; PULSE 108; RESP 16; O2SAT 96
--- NOTE | 2023-01-24 05:52 | PC.NURSE ---
RNx3 and security to bedside to have pt go back in room. Pt became upset that he could not be in the navar[place]te. Verbal deescalation used, pt cooperative and went back into room.
--- NOTE | 2023-01-24 05:53 | PC.NURSE ---
This RN has attempted multiple times to obtain urine sample, pt refused.
--- NOTE | 2023-01-24 07:47 | PC.NURSE ---
PT REFUSED PO ATIVAN. PT STATES THAT SINCE HE HAS BEEN HERE ALL WE HAVE TRIED TO DO IS GIVE HIM DRUGS AND A DRUG ADDICTION.
--- NOTE | 2023-01-24 08:10 | PC.NURSE ---
PT REQUESTED THIS NURSE CALL HIS GRANDMA AMBER OR [place]. PT GAVE THIS NURSE PHONE NUMBER TO CALL.
--- NOTE | 2023-01-24 08:15 | PC.NURSE ---
GRANDMOTHER CONTACTED PER PT REQUEST.
--- NOTE | 2023-01-24 08:37 | PC.NURSE ---
SECURITY CALLED. THIS NURSE COULD HEAR PT GETTING LOUDER TALKING TO ED SITTERS. PT WALKED OUT OF ROOM INTO [facility]. PT SEEMED UPSET. SECURITY AND THIS NURSE VERBALLY DEESCALATED SITUATION WITH OTHER STAFF PRESENCE. PT BACK IN ROOM.
--- NOTE | 2023-01-24 10:04 | W.PM.NPUH&PS ---
Providers/Chief Complaint Admitting Physician: Blanco Hudson MD Chief Complaint: MHE HPI NPU History of Present Illness Calvin Mccracken is a 22 year old male who presented to the Emergency Department with the following report: Chief Complaint: Anxiety Stated Complaint: MHE Time Seen by Provider: 01/24/23 02:48 Source: patient and police Mode of arrival: other (police) Limitations: no limitations History of Present Illness: 20-year-old male presents here with police for paranoia. He states that his mother called the police as he had been watching TV and using his seeing things in the corner he states been having a hard time sleeping to. He appears very paranoid he carries very careful when he is answering questions and is slow to answer questions but does appear very paranoid. He denies SI or HI he does admit to some drug abuse. Associated symptoms: Deny chest pain, chills, fever(s), headache(s), nausea or vomiting He was placed on a 96-hour hold and was admitted to the neuropsychiatric unit for definitive treatment of those issues. He presents today reporting he had been at home trying to sleep when he was feeling odd movements in his body that he could not explain and were freaking him out. His family was extremely by his behaviors and ended up calling for help. That is how he was brought here to the hospital. He reports that his mother was getting frustrated because he was seeing things in different parts of the house while they were trying to watch a movie and she did not see them and that was also an issue of contention. He denies significant cigarette smoking reports that he does drink alcohol from time to time and denies marijuana usage. He does report that he has had use of methamphetamine and he was unable or unwilling to say how recently. He did go on to say that he has not had any rehab stays or drug and alcohol treatments but that he needs it. He reports that is because his use at times has been out of control. He denies ever having a DUI or any other drug-related charges. He denies any past psychiatric hospitalizations, he reports he has never been on medication, he reports he is never been in any kind of psychiatric treatment. Many of the questions that we attempted to discuss he had it off with significant paranoia and wondering is why these questions were being asked. We discussed the fact that he had clear psychosis and odd behaviors to a level that his family was concerned meaning that they were higher than usual and we wanted to make sure that he was safe for discharge. He lobby that he was safe but the emergency room doctor felt concerned about his safety and placed him on a 96-hour hold and I concurred that this was the right decision. We discussed the fact that there would be likely benefit from him taking an antipsychotic to try to manage his symptoms. He was resistant to the idea of medication. He was focused on getting discharged sooner rather than later because he was concerned about his job. 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 We discussed the risks, benefits and alternatives of starting an antipsychotic and he understood and agreed to proceed as is documented in this note. PSYCHIATRIC HISTORY: As above. SUBSTANCE ABUSE HISTORY: As above.? FAMILY HISTORY: He reports addiction issues in the family. DEVELOPMENTAL HISTORY: The patient denied any issues with or delivery. He learned to walk and talk and met all developmental milestones on time. The patient did not report need for speech therapy, learning support, emotional support, or special education classes. PSYCHOSOCIAL HISTORY: Patient was willing to give limited information in the psychosocial sense. He did report that he lives with his mother and possibly another family member. 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 LEGAL HISTORY: He reports that he has possibly arrested a couple of times but he was guarded about the question. MEDICAL HISTORY: Denied. Meds NPU Home Medications Medication Instructions Recorded Confirmed Last Taken Type No Known Home Medications 01/24/23 01/24/23 Unknown History Allergies Allergy/AdvReac Type Severity Reaction Status Date / Time No Known Allergies Allergy Verified 01/24/23 16:20 Mental Status Exam MSE Comments: This is a well-nourished, well-developed, dark skinned male, in hospital scrubs, disheveled with limited grooming and eye contact. No abnormal movements, except for mild to moderate psychomotor agitation. Somewhat cooperative with exam in mild moderate distress. Speech was normal rate and volume. Mood described as fine; affect congruent. Thought process, organized. Thought content: patient denied any suicidal or homicidal ideation, there were no delusions reported but clear paranoia and somatic delusions noted, patient denied any auditory or visual hallucinations, but discussed issues consistent with visual and somatic hallucinations. Attention and concentration appeared limited and memory was unreliable, but none were formally tested. Alert and oriented times three. Insight and judgment are impaired. Impulse control is limited. Vitals/I&O/Wt Last Vital Signs Temp 98.3 F 01/24/23 15:27 Pulse 92 01/24/23 15:27 Resp 16 01/24/23 15:27 BP 140/100 01/24/23 15:27 Pulse Ox 97 01/24/23 15:27 O2 Del Method Room Air 01/24/23 15:27 Weight last 48 hrs Weight 70.307 kg Data NPU 01/24/23 04:34 01/24/23 04:34 A&P Assessment and plan (1) Acute psychosis: (2) Methamphetamine dependence: Plan This is a 22-year-old male, with genetic loading for addiction issues, who presents on a 96-hour hold, with active psychosis and likely active addiction. 1. Encourage initiation of an antipsychotic. 2. Encourage individual, group, and milieu therapy. 3. Continue q-15-minute checks for safety. 4. Recommend sober living treatment at the highest level of care to which the patient is willing to commit. Involuntary Hold Information 96 Hour Hold: 96 Hour Involuntary Admission: Yes 96 Hour Hold Ending Date: 01/30/23 96 Hour Hold Ending Time: 04:10 Attestations NPU Medical Necessity Statement*: Inpatient hospitalization is medically necessary and the clinically appropriate intervention, at this time. We will monitor medications and make changes as indicated. Patient will be in the hospital for over two midnights. Likely length of stay is three to five days. Coding Level of Care Code Acute Code for [facility] Fwd Diagnoses Acute psychosis F23 Methamphetamine dependence F15.20
--- NOTE | 2023-01-24 10:52 | PC.NURSE ---
PATIENT RESTING IN BED. PATIENT CALM. SITTERS PRESENT.
--- NOTE | 2023-01-24 13:18 | PC.NURSE ---
PATENT AWAKE SITTING IN BED FINISHSING LUNCH TRAY. PATIENT IS CALM AND COOPERATIVE
[2023-01-24 15:09] VITALS: BP 128/82; PULSE 75; RESP 18; O2SAT 97
[2023-01-24 15:27] VITALS: BP 140/100; PULSE 92; RESP 16; TEMP 36.8; O2SAT 97
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
[2023-01-24 19:14] LABS: Cocaine Screen Urine Negative (Negative); PCP Screen Urine Negative (Negative); THC Screen Urine Negative (Negative)
[2023-01-24 19:15] LABS: Amphetamines Screen Urine Positive (Negative); Barbiturates Screen Urine Negative (Negative); Benzodiazepines Screen Urine Negative (Negative); Opiate Screen Urine Negative (Negative)
[2023-01-24 21:26] VITALS: BP 117/58; PULSE 73; RESP 16; TEMP 36.8; O2SAT 98
[2023-01-25 06:00] VITALS: BP 124/78; PULSE 69; RESP 17; TEMP 36.7; O2SAT 99
[2023-01-25] MEDS: thiamine 100 mg Tablet PO (09:51)
[2023-01-25] MEDS: multivitamin therapeutic Tablet 1 TAB PO (09:52)
[2023-01-25] MEDS: folic acid 1 mg Tablet PO (09:52)
--- NOTE | 2023-01-25 10:09 | P.NPUPN_ITS ---
Subjective NPU Subjective: Patient presented today reporting that he has been to the [facility] but that he has to do walk-in and has generally left prior to accomplishing. He reports that when he was in long term that they did try Abilify and he reports that it was helpful. Additionally he endorsed a family history of psychotic illness including bipolar disorder. We also discussed the fact that from a diagnostic standpoint until he has 6 months to year sobriety it is impossible to tell whether this is a drug- induced psychosis versus yajaira secondary to bipolar disorder with possible exacerbation or worsening secondary to substance use. We discussed risk-benefit alternatives of starting Abilify and he understood and agreed to proceed as is documented in this note. Mental Status Exam MSE Comments: This is a well-nourished, well-developed, dark skinned male, in hospital scrubs, disheveled with limited grooming and eye contact. No abnormal movements, except for mild psychomotor agitation. Somewhat cooperative with exam in mild distress. Speech was normal rate and volume. Mood described as fine; affect congruent. Thought process, organized. Thought content: patient denied any suicidal or homicidal ideation, there were somatic and paranoid delusions reported and paranoia and somatic delusions noted, patient endorsed auditory and visual hallucinations. Attention and concentration appeared intact and memory was much more reliable, but none were formally tested. Alert and oriented times three. Insight and judgment are improving. Impulse control is limited. Vitals/I&O/Wt Last Vital Signs Temp 98.1 F 01/25/23 06:00 Pulse 69 01/25/23 06:00 Resp 17 01/25/23 06:00 BP 124/78 01/25/23 06:00 Pulse Ox 99 01/25/23 06:00 O2 Del Method Room Air 01/25/23 06:00 Weight last 48 hrs Weight 70.307 kg Data NPU 01/24/23 04:34 01/24/23 04:34 A&P Assessment and plan (1) Acute psychosis: (2) Methamphetamine dependence: Plan This is a 22-year-old male, with genetic loading for addiction issues, who presents on a 96-hour hold, with active psychosis and likely active addiction. 1. Initiate Abilify 5 mg p.o. daily with plan to increase to 10 mg p.o. every morning tomorrow. 2. Encourage individual, group, and milieu therapy. 3. Continue q-15-minute checks for safety. 4. Recommend sober living treatment at the highest level of care to which the patient is willing to commit. Involuntary Hold Information 96 Hour Hold: 96 Hour Involuntary Admission: Yes 96 Hour Hold Ending Date: 01/30/23 96 Hour Hold Ending Time: 04:10 Attestations NPU Medical Necessity Statement*: Inpatient hospitalization is medically necessary and the clinically appropriate intervention, at this time. We will monitor medications and make changes as indicated. Likely length of stay is three to five days. Coding Level of Care Code Acute Code for g Fwd Diagnoses Acute psychosis F23 Methamphetamine dependence F15.20
[2023-01-25 14:00] VITALS: BP 120/79; PULSE 75; TEMP 36.7; O2SAT 100
[2023-01-25] MEDS: nicotine 2 mg Gum BUCCAL (14:40)
[2023-01-25] MEDS: ARIPiprazole 10 mg Tablet 5 MG PO (18:46)
[2023-01-25 20:07] VITALS: BP 114/74; PULSE 85; RESP 14; TEMP 36.8; O2SAT 99
[2023-01-25] MEDS: trazodone 50 mg Tablet PO (20:17)
[2023-01-25] MEDS: hyDROXYzine 25 mg Capsule 50 MG PO (20:17)
[2023-01-26 06:00] VITALS: BP 106/67; PULSE 77; RESP 13; TEMP 36.4; O2SAT 100
[2023-01-26] MEDS: ARIPiprazole 10 mg Tablet PO (08:49)
[2023-01-26] MEDS: thiamine 100 mg Tablet PO (08:49)
[2023-01-26] MEDS: folic acid 1 mg Tablet PO (08:49)
[2023-01-26] MEDS: multivitamin therapeutic Tablet 1 TAB PO (08:50)
[2023-01-26 14:00] VITALS: BP 117/64; PULSE 84; RESP 20; TEMP 36.9; O2SAT 98
--- NOTE | 2023-01-26 18:04 | W.PM.NPUPNS ---
Subjective NPU Subjective: Patient presented today reporting that he is feeling okay. He denies any side effects to the medication. He denied having any somatic oddities or visual hallucinations which he had reported as recently as yesterday. He did get a visit from his family which he enjoyed. He continues to be focused on the possibility of discharge and we discussed the fact that he likely be here prior to his 96-hour hold ending if he continues at this recovery pace. Mental Status Exam MSE Comments: This is a well-nourished, well-developed, dark skinned male, in hospital scrubs, disheveled with limited grooming and eye contact. No abnormal movements. Mostly cooperative with exam in no acute distress. Speech was normal rate and volume. Mood described as fine; affect congruent. Thought process, organized. Thought content: patient denied any suicidal or homicidal ideation, there were no somatic and paranoid delusions reported and no delusions noted, patient denied auditory or visual hallucinations. Attention and concentration appeared intact and memory was much more reliable, but none were formally tested. Alert and oriented times three. Insight and judgment are improving. Impulse control is limited. Vitals/I&O/Wt Last Vital Signs Temp 97.9 F 01/26/23 20:58 Pulse 100 01/26/23 20:58 Resp 18 01/26/23 20:58 BP 115/82 01/26/23 20:58 Pulse Ox 99 01/26/23 20:58 O2 Del Method Room Air 01/26/23 14:00 Data NPU 01/24/23 04:34 01/24/23 04:34 A&P Assessment and plan (1) Acute psychosis: (2) Methamphetamine dependence: Plan This is a 22-year-old male, with genetic loading for addiction issues, who presents on a 96-hour hold, with active psychosis and likely active addiction. 1. Initiated Abilify 5 mg p.o. daily and increase to 10 mg p.o. every morning today 01/26/2023. 2. Encourage individual, group, and milieu therapy. 3. Continue q-15-minute checks for safety. 4. Recommend sober living treatment at the highest level of care to which the patient is willing to commit. Involuntary Hold Information 96 Hour Hold: 96 Hour Involuntary Admission: Yes 96 Hour Hold Ending Date: 01/30/23 96 Hour Hold Ending Time: 04:10 Attestations NPU Medical Necessity Statement*: Inpatient hospitalization is medically necessary and the clinically appropriate intervention, at this time. We will monitor medications and make changes as indicated. Likely length of stay is 2-3 days. Coding Level of Care Code Acute Code for Chg Fwd Diagnoses Acute psychosis F23 Methamphetamine dependence F15.20
[2023-01-26 20:58] VITALS: BP 115/82; PULSE 100; RESP 18; TEMP 36.6; O2SAT 99
[2023-01-27 06:00] VITALS: BP 120/67; PULSE 67; RESP 16; TEMP 36.7; O2SAT 100
[2023-01-27] MEDS: folic acid 1 mg Tablet PO (08:49)
[2023-01-27] MEDS: ARIPiprazole 10 mg Tablet PO (08:49)
[2023-01-27] MEDS: thiamine 100 mg Tablet PO (08:50)
[2023-01-27] MEDS: multivitamin therapeutic Tablet 1 TAB PO (08:50)
[2023-01-27] MEDS: nicotine 2 mg Gum BUCCAL ×2 (11:29→14:52)
[2023-01-27] MEDS: acetaminophen 325 mg Tablet 650 MG PO (11:29)
--- NOTE | 2023-01-27 11:52 | DCPLANNER ---
Patient was called due to no primary care physician - no answer at this time.
[2023-01-27 14:00] VITALS: BP 97/64; PULSE 111; RESP 16; TEMP 36.8; O2SAT 97
--- NOTE | 2023-01-27 17:04 | P.NPUPN_ITS ---
Subjective NPU Subjective: Patient presented today reporting that he is feeling better in general. Reports that he uses regulation skills to avoid getting drawn into people that are on the unit that can be quite irritating. He denies any side effects with the increase in the Abilify. Denies any delusional or perceptual disturbances. We discussed the likelihood of discharge on Sunday once we have all appointments and everything in place. Began discussion about possibility of long-acting injectable. Discussed the need to avoid methamphetamines and other drugs of abuse. Talked about family challenges and difficulty living where he lives. Mental Status Exam MSE Comments: This is a well-nourished, well-developed, dark skinned male, in hospital scrubs, disheveled with limited grooming and eye contact. No abnormal movements. Mostly cooperative with exam in no acute distress. Speech was normal rate and volume. Mood described as fine; affect congruent. Thought process, organized. Thought content: patient denied any suicidal or homicidal ideation, there were no somatic and paranoid delusions reported and no delusions noted, patient denied auditory or visual hallucinations. Attention and concentration appeared intact and memory was much more reliable, but none were formally tested. Alert and oriented times three. Insight and judgment are improving. Impulse control is limited. Vitals/I&O/Wt Last Vital Signs Temp 97.5 F L 01/27/23 21:41 Pulse 78 01/27/23 21:41 Resp 16 01/27/23 21:41 BP 139/72 01/27/23 21:41 Pulse Ox 96 01/27/23 21:41 O2 Del Method Room Air 01/27/23 14:00 Data NPU 01/24/23 04:34 01/24/23 04:34 A&P Assessment and plan (1) Acute psychosis: (2) Methamphetamine dependence: Plan This is a 22-year-old male, with genetic loading for addiction issues, who presents on a 96-hour hold, with active psychosis and likely active addiction. 1. Initiated Abilify 5 mg p.o. daily and increased to 10 mg p.o. every morning 01/26/2023. 2. Encourage individual, group, and milieu therapy. 3. Continue q-15-minute checks for safety. 4. Recommend sober living treatment at the highest level of care to which the patient is willing to commit. Involuntary Hold Information 2 96 Hour Hold: 96 Hour Involuntary Admission: Yes 96 Hour Hold Ending Date: 01/30/23 96 Hour Hold Ending Time: 04:10 Attestations NPU Medical Necessity Statement*: Inpatient hospitalization is medically necessary and the clinically appropriate intervention, at this time. We will monitor medications and make changes as indicated. Likely length of stay is 1-3 days. Coding Level of Care Code Acute Code for Chg Fwd Diagnoses Acute psychosis F23 Methamphetamine dependence F15.20
[2023-01-27] MEDS: trazodone 50 mg Tablet PO (20:57)
[2023-01-27 21:41] VITALS: BP 139/72; PULSE 78; RESP 16; TEMP 36.4; O2SAT 96
[2023-01-28 06:00] VITALS: RESP 18
[2023-01-28] MEDS: ARIPiprazole 10 mg Tablet PO (08:56)
[2023-01-28] MEDS: multivitamin therapeutic Tablet 1 TAB PO (08:56)
[2023-01-28] MEDS: thiamine 100 mg Tablet PO (08:56)
[2023-01-28] MEDS: folic acid 1 mg Tablet PO (08:56)
--- NOTE | 2023-01-28 10:33 | P.NPUPN_ITS ---
Subjective NPU Subjective: Patient presented today reporting that he is doing okay. He denied any psychotic symptoms and denied any side effects to the medications. We discussed working with the social work team tomorrow for appropriate outpatient follow-ups and discussing the possibility of a long-acting injectable. We also discussed the importance of sobriety and resources to assist him in maintaining his avoida nce of amphetamines. Mental Status Exam MSE Comments: This is a well-nourished, well-developed, dark skinned male, in hospital scrubs, disheveled with limited grooming and eye contact. No abnormal movements. Mostly cooperative with exam in no acute distress. Speech was normal rate and volume. Mood described as fine; affect congruent. Thought process, organized. Thought content: patient denied any suicidal or homicidal ideation, there were no somatic and paranoid delusions reported and no delusions noted, patient denied auditory or visual hallucinations. Attention and concentration appeared intact and memory was much more reliable, but none were formally tested. Alert and oriented times three. Insight and judgment are improving. Impulse control is limited. Vitals/I&O/Wt Last Vital Signs Temp 97.5 F L 01/27/23 21:41 Pulse 78 01/27/23 21:41 Resp 18 01/28/23 06:00 BP 139/72 01/27/23 21:41 Pulse Ox 96 01/27/23 21:41 O2 Del Method Room Air 01/27/23 14:00 Weight last 48 hrs Weight 79.946 kg Data NPU 01/24/23 04:34 01/24/23 04:34 A&P Assessment and plan (1) Acute psychosis: (2) Methamphetamine dependence: Plan This is a 22-year-old male, with genetic loading for addiction issues, who presents on a 96-hour hold, with active psychosis and likely active addiction. 1. Initiated Abilify 5 mg p.o. daily and increased to 10 mg p.o. every morning 01/26/2023. 2. Encourage individual, group, and milieu therapy. 3. Continue q-15-minute checks for safety. 4. Recommend sober living treatment at the highest level of care to which the patient is willing to commit. Involuntary Hold Information 96 Hour Hold: 96 Hour Involuntary Admission: Yes 96 Hour Hold Ending Date: 01/30/23 96 Hour Hold Ending Time: 04:10 Attestations NPU Medical Necessity Statement*: Inpatient hospitalization is medically necessary and the clinically appropriate intervention, at this time. We will monitor medications and make changes as indicated. Likely length of stay is 1-2 days. Coding Level of Care Code Acute Code for Chg Fwd Diagnoses Acute psychosis F23 Methamphetamine dependence F15.20
[2023-01-28] MEDS: nicotine 2 mg Gum BUCCAL (11:38)
[2023-01-28 14:00] VITALS: BP 122/82; PULSE 86; RESP 16; TEMP 36.8; O2SAT 97
[2023-01-28 20:28] VITALS: BP 128/78; PULSE 90; RESP 18; TEMP 36.3; O2SAT 100
[2023-01-28] MEDS: trazodone 50 mg Tablet PO (21:50)
[2023-01-28] MEDS: nicotine 4 mg lozenge MUCOUS MEM (21:52)
[2023-01-29 06:00] VITALS: BP 115/68; PULSE 78; RESP 16; O2SAT 98
[2023-01-29] MEDS: thiamine 100 mg Tablet PO (08:18)
[2023-01-29] MEDS: folic acid 1 mg Tablet PO (08:18)
[2023-01-29] MEDS: ARIPiprazole 10 mg Tablet PO (08:18)
[2023-01-29] MEDS: multivitamin therapeutic Tablet 1 TAB PO (08:18)
[2023-01-29] MEDS: nicotine 4 mg lozenge MUCOUS MEM (10:54)
[2023-01-29 11:44] VITALS: BP 115/68; PULSE 78; RESP 16; O2SAT 98
[2023-01-29] MEDS: nicotine 21 mg Patch 1 PATCH TRANSDERMA (13:11)
--- NOTE | 2023-01-29 13:27 | PC.NURSE ---
patient removed nicotine patch at 1320 because he didn't like how it made him feel. patient feeling sick to his stomach.
[2023-01-29 14:00] VITALS: BP 138/90; PULSE 98; RESP 16; TEMP 36.3; O2SAT 97
--- NOTE | 2023-01-29 14:07 | P.NPUDS_ITS ---
Diagnoses at Discharge Discharge Diagnosis (1) Acute psychosis: (2) Methamphetamine dependence: Reason for Visit Reason for Visit: MHE Brief History: History of Present Illness Calvin Mccracken is a 22 year old male who presented to the Emergency Department with the following report: Chief Complaint: Anxiety Stated Complaint: MHE Time Seen by Provider: 01/24/23 02:48 Source: patient and police Mode of arrival: other (police) Limitations: no limitations History of Present Illness:?? 20-year-old male presents here with police for paranoia.? He states that his mother called the police as he had been watching TV and using his seeing things in the corner he states been having a hard time sleeping to.? He appears very paranoid he carries very careful when he is answering questions and is slow to answer questions but does appear very paranoid.? He denies SI or HI he does admit to some drug abuse. ? Associated symptoms: Deny chest pain, chills, fever(s), headache(s), nausea or vomiting He was placed on a 96-hour hold and was admitted to the neuropsychiatric unit for definitive treatment of those issues. He presents today reporting he had been at home trying to sleep when he was feeling odd movements in his body that he could not explain and were freaking him out. His family was extremely by his behaviors and ended up calling for help.? That is how he was brought here to the hospital.? He reports that his mother was getting frustrated because he was seeing things in different parts of the house while they were trying to watch a movie and she did not see them and that was also an issue of contention.? He denies significant cigarette smoking reports that he does drink alcohol from time to time and denies marijuana usage.? He does report that he has had use of methamphetamine and he was unable or unwilling to say how recently.? He did go on to say that he has not had any rehab stays or drug and alcohol treatments but that he needs it.? He reports that is because his use at times has been out of control.? He denies ever having a DUI or any other drug-related charges.? He denies any past psychiatric hospitalizations, he reports he has never been on medication, he reports he is never been in any kind of psychiatric treatment.? Many of the questions that we attempted to discuss he had it off with significant paranoia and wondering is why these questions were being asked.? We discussed the fact that he had clear psychosis and odd behaviors to a level that his family was concerned meaning that they were higher than usual and we wanted to make sure that he was safe for discharge.? He lobby that he was safe but the emergency room doctor felt concerned about his safety and placed him on a 96- hour hold and I concurred that this was the right decision.? We discussed the fact that there would be likely benefit from him taking an antipsychotic to try to manage his symptoms.? He was resistant to the idea of medication.? He was focused on getting discharged sooner rather than later because he was concerned about his job.? 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 We discussed the risks, benefits and alternatives of starting an antipsychotic and he understood and agreed to proceed as is documented in this note. PSYCHIATRIC HISTORY: As above. SUBSTANCE ABUSE HISTORY: As above.? FAMILY HISTORY: He reports addiction issues in the family. DEVELOPMENTAL HISTORY: The patient denied any issues with or delivery. He learned to walk and talk and met all developmental milestones on time. The patient did not report need for speech therapy, learning support, emotional support, or special education classes. PSYCHOSOCIAL HISTORY: Patient was willing to give limited information in the psychosocial sense.? He did report that he lives with his mother and possibly another family member.? 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 LEGAL HISTORY: He reports that he has possibly arrested a couple of times but he was guarded about the question. MEDICAL HISTORY: Denied. Hospital Course Hospital Course He slowly acclimated to the individual, group and milieu therapies. He was initially resistant to medications but ultimately was able to set the diagnosis of psychosis and the fact that he could not delineate whether this was drug- induced, amphetamines, exacerbated by methamphetamines or was just psychotic illness. We started Abilify and titrated t0 10 milligrams daily and gave trazodone and thiamine as well. He had significant improvement. He worked with the social work team for appropriate discharge planning and aftercare arrangements including for his addiction. He was able to contract for safety outside of the hospital prior to discharge. During the hospitalization, patient had routine laboratory studies which were within normal limits except for few outliers.? Additionally there was a general medical evaluation which was also within normal limits and revealed no new acute processes. Discharge Summary: At the time of discharge, he denied psychosis or lethality.? Mood and anxiety were well managed.? Patient endorsed a plan to avoid all drugs of abuse and follow-up with the aftercare recommendations of the treatment team.? Patient was evaluated and deemed to be absent credible lethality, and had achieved the maximum benefit from an inpatient hospitalization, so was discharged. Involuntary Hold Information 96 Hour Hold: 96 Hour Involuntary Admission: Yes 96 Hour Hold Ending Date: 01/30/23 96 Hour Hold Ending Time: 04:10 Mental Status Exam MSE Comments: This is a well-nourished, well-developed, dark skinned male, in hospital scrubs, disheveled with limited grooming and eye contact. No abnormal movements. Mostly cooperative with exam in no acute distress. Speech was normal rate and volume. Mood described as fine; affect congruent. Thought process, organized. Thought content: patient denied any suicidal or homicidal ideation, there were no somatic and paranoid delusions reported and no delusions noted, patient denied auditory or visual hallucinations. Attention and concentration appeared intact and memory was much more reliable, but none were formally tested. Alert and oriented times three. Insight and judgment are improving. Impulse control is limited. Discharge Data Studies Completed and Pending: Laboratory Results WBC 12.5 10^3/uL (4.0 -10.0) H 01/24/23 04:34 RBC 5.38 10^6/uL (4.1 -5.3) H 01/24/23 04:34 Hgb 16.7 g/dL (11.7-1 6.6) H 01/24/23 04:34 Hct 50.5 % (42.0-52.0 ) 01/24/23 04:34 MCV 93.9 fl (80-94) 01/24/23 04:34 MCH 31.0 pg (28.0-34. 0) 01/24/23 04:34 MCHC 33.1 g/dL (30.0-3 6.0) 01/24/23 04:34 RDW 12.8 % (12.1-15.1 ) 01/24/23 04:34 Plt Count 259 10^3/cmm (130 -400) 01/24/23 04:34 MPV 10.2 fL (7.4-10.4 ) 01/24/23 04:34 Neut % (Auto) 70.8 % 01/24/23 04:34 Lymph % (Auto) 18.0 % 01/24/23 04:34 Gove % (Auto) 8.9 % 01/24/23 04:34 Eos % (Auto) 0.8 % 01/24/23 04:34 Baso % (Auto) 1.0 % 01/24/23 04:34 Neut # (Auto) 8.89 10^3/uL (1.8 -7.7) H 01/24/23 04:34 Lymph # (Auto) 2.3 10^3/uL (0.8- 4.8) 01/24/23 04:34 Gove # (Auto) 1.1 10^3/uL (0.2- 0.9) H 01/24/23 04:34 Eos # (Auto) 0.1 10^3/uL (0.0- 0.8) 01/24/23 04:34 Baso # (Auto) 0.1 10^3/uL (0.0- 0.1) 01/24/23 04:34 Nucleated RBC % (a uto) 0 % 01/24/23 04:34 Nucleated RBCs # 0.0 /100WBC 01/24/23 04:34 Sodium 139 mmol/L (136-1 45) 01/24/23 04:34 Potassium 3.8 mmol/L (3.5-5 .1) 01/24/23 04:34 Chloride 99 mmol/L (98-107 ) 01/24/23 04:34 Carbon Dioxide 25 mmol/L (22-29) 01/24/23 04:34 Anion Gap 18.8 (5-19) 01/24/23 04:34 BUN 13 mg/dL (6-20) 01/24/23 04:34 Creatinine 1.1 mg/dL (0.7-1. 2) 01/24/23 04:34 GFR Calculation 84.5 mL/min (90-1 30) L 01/24/23 04:34 Glucose 107 mg/dL (65-115 ) 01/24/23 04:34 Calculated Osmolal ity 289 mOsm/kg (285- 295) 01/24/23 04:34 Calcium 9.9 mg/dL (8.5-10 .5) 01/24/23 04:34 Total Bilirubin 1.4 mg/dL (0.15-1 .2) H 01/24/23 04:34 AST 24 U/L (0-40) 01/24/23 04:34 ALT 10 U/L (0-41) 01/24/23 04:34 Alkaline Phosphata se 81 U/L (40-130) 01/24/23 04:34 Total Protein 8.2 g/dL (6.6-8.7 ) 01/24/23 04:34 Albumin 5.2 g/dL (3.5-5.2 ) 01/24/23 04:34 Globulin 3.0 g/dL (1.3-4.6 ) 01/24/23 04:34 Salicylates < 0.3 mg/dL (3-10 ) L 01/24/23 04:34 Urine Opiates Scre en Negative ng/mL (N egative) 01/24/23 18:35 Acetaminophen < 5.0 ug/mL (10-3 0) L 01/24/23 04:34 Ur Barbiturates Sc reen Negative ng/mL (N egative) 01/24/23 18:35 Ur Phencyclidine S crn Negative ng/mL (N egative) 01/24/23 18:35 Ur Amphetamines Sc reen Positive ng/mL (N egative) H 01/24/23 18:35 U Benzodiazepines Scrn Negative ng/mL (N egative) 01/24/23 18:35 Urine Cocaine Scre en Negative ng/mL (N egative) 01/24/23 18:35 U Marijuana (THC) Screen Negative ng/mL (N egative) 01/24/23 18:35 Ethyl Alcohol < 10 mg/dL (0-10) 01/24/23 04:34 Vitals: Last Vital Signs Temp 97.4 F L 01/28/23 20:28 Pulse 78 01/29/23 11:44 Resp 16 01/29/23 11:44 BP 115/68 01/29/23 11:44 Pulse Ox 98 01/29/23 11:44 O2 Del Method Room Air 01/29/23 06:00 Discharge Plan Discharge Patient Disposition: Home Condition: Stable Prescriptions: New trazodone 50 mg Tablet 50 mg PO BEDTIME PRN (Reason: Sleep) 30 Days Qty: 30 1RF aripiprazole 10 mg Tablet 10 mg PO DAILY 30 Days Qty: 30 1RF Vitamin B-1 (mononitrate) 100 mg Tablet 100 mg PO DAILY 30 Days Qty: 30 1RF No Action thiamine HCl (vitamin B1) 50 mg tablet 50 mg PO DAILY trazodone 50 mg tablet 50 mg PO .HS PRN (Reason: insomnia) naltrexone 50 mg tablet 50 mg PO DAILY Qty: 30 1RF aripiprazole [Abilify] 5 mg tablet 5 mg PO .HS Qty: 30 1RF fluoxetine [Prozac] 20 mg capsule 20 mg PO DAILY Qty: 30 1RF Discharge Orders: Discharge Order (Routine); Ordered 01/29/23 Ordered By: Blanco Hudson Referrals: [facility] [Other] ([facility] for outpatient will be in February. Call for date and time. ) Yuriy Arango MD [Physician] - 04/02/23 3:15 pm (Follow up) Vivek Vang MD [Physician] - 01/31/23 8:30 am (Follow up) Discharge Diet: Regular Discharge Activity: Resume usual activity Patient Instructions: Psychotic Disorder (GEN), Opioid Safety Discharge Attestations NPU Time Spent in Discharge Care*: less than 30 min Specific Discharge Activities: Specific discharge activities: educating patient, discussing with community case manager/social workers/dc planners, documenting/other paperwork and evaluating patient/reviewing data Coding Level of Care Code Acute Chg FW DC note Diagnoses Acute psychosis F23 Methamphetamine dependence F15.20
[2023-01-29] MEDS: nicotine 2 mg Gum BUCCAL (15:43)
== END 2023-01-29 16:56 | disposition home or self-care (01) | DRG 885 ==
LOC: ER 04:14 → ER IP 05:22 → NP 16:45
PROVIDERS: Admitting Provider Psychiatry & Neurology Psychiatry; Emergency Provider Emergency Medicine; Visit Provider Psychiatry & Neurology Psychiatry
DX: F23 Brief psychotic disorder (principal); F15.20 Other stimulant dependence, uncomplicated
CPT/HCPCS: 80053; 80306; 80307; 85025; 97150; 97165; 99238; 99285

== ENCOUNTER 2024-08-21 16:39 | Emergency (ER) | payer BC, MEDICAID, SELFPAY ==
[2024-08-21 16:51] VITALS: BP 148/92; PULSE 148; RESP 18; TEMP 36.4; O2SAT 97
[2024-08-21] MEDS: diphenhydrAMINE 50 mg/mL SDV 1mL (16:57)
[2024-08-21] MEDS: haloperidol inj 5 mg/mL INJ 1 mL (16:57)
[2024-08-21] MEDS: LORazepam 2 mg/mL INJ 1 mL (16:57)
[2024-08-21 17:05] LABS: Basophils # 0.1 10^3/uL (0.0-0.1); Basophils % 0.9 %; Eosinophils # 0.4 10^3/uL (0.0-0.8); Eosinophils % 2.8 %; Hematocrit 49.4 % (37-53); Lymphocytes % 31.2 %; Mean Corpuscular HGB Conc 32.2 g/dL (30-55); Mean Corpuscular Hemoglobin 30.2 pg (27-33); Mean Corpuscular Volume 93.7 fl (82-101); Mean Platelet Volume 10.4 fL (7.4-10.4); Monocytes # 0.9 10^3/uL (0.2-0.9); Monocytes % 7.1 %; Neutrophils % 57.4 %; Nucleated Red Blood Cells % 0 %; Platelet Count 253 10^3/cmm (157-399); Red Blood Count 5.27 10^6/uL (3.85-5.65); Red Cell Distribution Width 12.8 % (12.1-15.1); White Blood Count 12.89 10^3/uL (3.29-11.43)
--- NOTE | 2024-08-21 17:16 | ED.C_ITS ---
Documented by User: Jeanette Jerry MD 08/21/24 19:05 HPI - Psych 2 General: Chief Complaint: Psychiatric Symptoms Stated Complaint: SI/ ETOH Time Seen by Provider: 08/21/24 16:46 History of Present Illness: 24-year-old male who presents to the [facility] with police and EMS being incredibly combative. He was placed in restraints. Police report he has been drinking. He was stumbling in the road. At 1 point he yelled at the police and told them to pull out the gun and shoot him. He then vomited in the back of the police was car on the way here. He is extremely combative. Related Data Home Medications Medication Instructions Recorded Confirmed thiamine HCl (vitamin B1) 50 mg 50 mg PO DAILY 01/31/23 01/31/23 tablet trazodone 50 mg tablet 50 mg PO .HS PRN insomnia 01/31/23 01/31/23 Previous Rx's Medication Instructions Recorded aripiprazole 10 mg tablet 10 mg PO DAILY 30 days #30 tabs 01/29/23 thiamine mononitrate (vit B1) 100 100 mg PO DAILY 30 days #30 tabs 01/29/23 mg tablet (Vitamin B-1 (mononitrate)) trazodone 50 mg tablet 50 mg PO BEDTIME PRN Sleep 30 days 01/29/23 #30 tabs aripiprazole 5 mg tablet (Abilify) 5 mg PO .HS #30 tabs 01/31/23 fluoxetine 20 mg capsule (Prozac) 20 mg PO DAILY #30 caps 01/31/23 naltrexone 50 mg tablet 50 mg PO DAILY #30 tabs 01/31/23 Allergies Allergy/AdvReac Type Severity Reaction Status Date / Time No Known Allergies Allergy Verified 02/01/23 08:38 Review of Systems 2 General: Reports: ROS unobtainable due to mental status PFSH ED 2 PFSH: Medical History (Updated 08/22/24 @ 00:15 by Blue Gandara DO) No pertinent family history Surgical History (System 02/01/23 @ 08:38 by Stefania Barakat) No pertinent past surgical history Social History (System 02/01/23 @ 08:38 by Stefania Barakat) Smoking and tobacco/nicotine status: current every day tobacco/nicotine user Alcohol intake: current Substance/Drug Use: current Substance/Drug use frequency: daily Physical Exam 2 Narrative: EXAM NARRATIVE: General: Alert. Skin: Warm, dry Head: Normocephalic, atraumatic. Neck: Supple, trachea midline. Eye: Extraocular movements are intact. Ears, nose, mouth and throat: Oral mucosa moist. Cardiovascular: Regular rate and rhythm, Normal peripheral perfusion. Respiratory: Lungs are clear to auscultation, respirations are non-labored, breath sounds are equal, Symmetrical chest wall expansion. Gastrointestinal: Soft, Nontender, Non distended, Normal bowel sounds. Musculoskeletal: Normal ROM, no deformity. Neurological: Not Alert and oriented to person, place, time, and situation, No focal neurological deficit observed. Psychiatric: agitated. Yelling, combative Course 2 Vital Signs: Vital signs: Vital Signs Temperature 97.6 F 08/21/24 16:51 Pulse Rate 84 08/22/24 00:26 Respiratory Rate 14 08/22/24 00:26 Blood Pressure 126/72 08/22/24 00:26 Pulse Oximetry 98 08/22/24 00:26 Oxygen Delivery Me thod Room Air 08/22/24 00:26 MDM - Psych Medical Decision Making Medical decision making: Differential diagnosis for patient with reported alcohol intoxication and possible need for psychiatric admission including but not limited to and based on the above HPI, review of systems and physical exam: concerns for infection, alcohol intoxication, cardiac issues or other medical problems prior to psychiatric admission. Orders placed to evaluate differential diagnosis based on the above differential, HPI and physical exam labwork, ekg ordered to evaluate the pathologies and to clear the patient medically prior to psychiatric admission Lab Review: Laboratory results were reviewed and interpreted by myself the emergency room physician. - Medically cleared. - EKG shows no ischemic changes. - Blood alcohol level is 325, - No anemia. - BUN and creatinine are within normal limits. Lab Data 08/21/24 16:51 08/21/24 16:51 Laboratory Results WBC 12.89 10^3/uL (3.29-11.43) H 08/21/24 16:51 RBC 5.27 10^6/uL (3.85-5.65) 08/21/24 16:51 Hgb 15.90 g/dL (11.27-16.99) 08/21/24 16: Hct 49.4 % (37-53) 08/21/24 16:51 MCV 93.7 fl (82-101) 08/21/24 16:51 MCH 30.2 pg (27-33) 08/21/24 16: MCHC 32.2 g/dL (30-55) 08/21/24 16:51 RDW 12.8 % (12.1-15.1) 08/21/24 16:51 Plt Count 253 10^3/cmm (157-399) 08/21/24 16: MPV 10.4 fL (7.4-10.4) 08/21/24 16:51 Neut % (Auto) 57.4 % 08/21/24 16:51 Lymph % (Auto) 31.2 % 08/21/24:51 [place] % (Auto) 7.1 % 08/21/24 16:51 Eos % (Auto) 2.8 % 08/21/24:51 Baso % (Auto) 0.9 % 08/21/24: Neut # (Auto) 7.40 10^3/uL (1.8-7.7) 08/21/24 16:51 Lymph # (Auto) 4.0 10^3/uL (0.8-4.8) 08/21/24 16:51 [place] # (Auto) 0.9 10^3/uL (0.2-0.9) 08/21/24 16:51 Eos # (Auto) 0.4 10^3/uL (0.0-0.8) 08/21/24: Baso # (Auto) 0.1 10^3/uL (0.0-0.1) 08/21/24:51 Nucleated RBC % (auto) 0 % 08/21/24: Nucleated RBCs # 0.0 /100WBC 08/21/24 16:51 Sodium 147 mmol/L (136-145) H 08/21/24 16:51 Potassium 3.3 mmol/L (3.5-5.1) L 08/21/24 16:51 Chloride 108 mmol/L (98-107) H 08/21/24 16:51 Carbon Dioxide 24 mmol/L (22-29) 08/21/24 16:51 Anion Gap 18.3 (5-19) 08/21/24 16:51 BUN 12 mg/dL (6-20) 08/21/24 16:51 Creatinine 1.0 mg/dL (0.7-1.2) 08/21/24 16:51 GFR Calculation 91.0 mL/min (90-130) 08/21/24 16:51 Glucose 106 mg/dL (65-115) 08/21/24 16:51 Calculated Osmolality 304 mOsm/kg (285-295) H 08/21/24 16:51 Calcium 8.6 mg/dL (8.5-10.5) 08/21/24 16:51 Total Bilirubin 0.4 mg/dL (0.15-1.2) 08/21/24 16:51 AST 21 U/L (0-40) 08/21/24 16:51 ALT 9 U/L (0-41) 08/21/24 16:51 Alkaline Phosphatase 91 U/L (40-130) 08/21/24 16:51 Total Protein 7.6 g/dL (6.6-8.7) 08/21/24 16:51 Albumin 4.7 g/dL (3.5-5.2) 08/21/24 16:51 Globulin 2.9 g/dL (1.3-4.6) 08/21/24 16:51 Salicylates < 0.3 mg/dL (3-10) L 08/21/24 16:51 Acetaminophen < 5.0 ug/mL (10-30) L 08/21/24 16:51 Ethyl Alcohol 207 mg/dL (0-10) H 08/21/24 23:44 Discharge Plan Discharge Patient Disposition: Home Clinical Impression: Alcohol intoxication, Agitation Condition: Stable Prescriptions: No Action thiamine HCl (vitamin B1) 50 mg tablet 50 mg PO DAILY trazodone 50 mg tablet 50 mg PO .HS PRN (Reason: insomnia) naltrexone 50 mg tablet 50 mg PO DAILY Qty: 30 1RF aripiprazole [Abilify] 5 mg tablet 5 mg PO .HS Qty: 30 1RF fluoxetine [Prozac] 20 mg capsule 20 mg PO DAILY Qty: 30 1RF trazodone 50 mg Tablet 50 mg PO BEDTIME PRN (Reason: Sleep) 30 Days Qty: 30 1RF aripiprazole 10 mg Tablet 10 mg PO DAILY 30 Days Qty: 30 1RF Vitamin B-1 (mononitrate) 100 mg Tablet 100 mg PO DAILY 30 Days Qty: 30 1RF Discharge Orders: Discharge ED (Routine); Ordered 08/22/24 Ordered By: Blue Gandara Patient Instructions: Alcohol Intoxication Activity Restrictions/Additional Instructions: Your evaluated in ER. Your lab work shows you are intoxicated however your alcohol level is improving. You have been deemed fit for confinement if the need arises. You will be discharged from the ER. Please follow-up with your family practice physician within the next 7 days for further evaluation and treatment as needed. Thank you for choosing [facility] for your healthcare needs today. Please realize that you were seen in the emergency department and that we are providing you with an emergency medical screening exam and this may not be a complete and all exclusive of all testing and/or medical workup we may need to determine your element or severity of your illness. It is very important that you follow-up as instructed with your primary care provider or specialist for the additional evaluation and to discuss your medical treatment plan. You may return to the emergency department should you have concerns or if your condition changes or worsens in any way. Coding Level of Care Code ED Outreach Professional for Chg Fwd Documented by User: Blue Gandara DO 08/22/24 00:42 HPI - Psych 2 General: Chief Complaint: Psychiatric Symptoms Stated Complaint: SI/ ETOH Time Seen by Provider: 08/21/24 16:46 Related Data Home Medications Medication Instructions Recorded Confirmed thiamine HCl (vitamin B1) 50 mg 50 mg PO DAILY 01/31/23 01/31/23 tablet trazodone 50 mg tablet 50 mg PO .HS PRN insomnia 01/31/23 01/31/23 Previous Rx's Medication Instructions Recorded aripiprazole 10 mg tablet 10 mg PO DAILY 30 days #30 tabs 01/29/23 thiamine mononitrate (vit B1) 100 100 mg PO DAILY 30 days #30 tabs 01/29/23 mg tablet (Vitamin B-1 (mononitrate)) trazodone 50 mg tablet 50 mg PO BEDTIME PRN Sleep 30 days 01/29/23 #30 tabs aripiprazole 5 mg tablet (Abilify) 5 mg PO .HS #30 tabs 01/31/23 fluoxetine 20 mg capsule (Prozac) 20 mg PO DAILY #30 caps 01/31/23 naltrexone 50 mg tablet 50 mg PO DAILY #30 tabs 01/31/23 Allergies Allergy/AdvReac Type Severity Reaction Status Date / Time No Known Allergies Allergy Verified 02/01/23 08:38 [facility] ED 2 PFS: Medical History (Updated 08/22/24 @ 00:15 by Blue Gandara DO) No pertinent family history Surgical History (System 02/01/23 @ 08:38 by Stefania Barakat) No pertinent past surgical history Social History (System 02/01/23 @ 08:38 by Stefania Barakat) Smoking and tobacco/nicotine status: current every day tobacco/nicotine user Alcohol intake: current Substance/Drug Use: current Substance/Drug use frequency: daily Course 2 Vital Signs: Vital signs: Vital Signs Temperature 97.6 F 08/21/24 16:51 Pulse Rate 84 08/22/24 00:26 Respiratory Rate 14 08/22/24 00:26 Blood Pressure 126/72 08/22/24 00:26 Pulse Oximetry 98 08/22/24 00:26 Oxygen Delivery Me thod Room Air 08/22/24 00:26 MDM - Psych Medical Decision Making Medical decision making: Differential diagnosis for patient with reported alcohol intoxication and possible need for psychiatric admission including but not limited to and based on the above HPI, review of systems and physical exam: concerns for infection, alcohol intoxication, cardiac issues or other medical problems prior to psychiatric admission. Orders placed to evaluate differential diagnosis based on the above differential, HPI and physical exam labwork, ekg ordered to evaluate the pathologies and to clear the patient medically prior to psychiatric admission Lab Review: Laboratory results were reviewed and interpreted by myself the emergency room physician. - Medically cleared. - EKG shows no ischemic changes. - Blood alcohol level is 325, - No anemia. - BUN and creatinine are within normal limits. Care transferred over to myself at shift change, lab work was reviewed, we repeated patient's blood alcohol, it was coming down satisfactorily. Patient be discharged Medical Records I reviewed the patient's medical records. Lab Data I reviewed the patient's lab results. 08/21/24 16:51 08/21/24 16:51 Laboratory Results WBC 12.89 10^3/uL (3.29-11.43) H 08/21/24 16:51 RBC 5.27 10^6/uL (3.85-5.65) 08/21/24 16:51 Hgb 15.90 g/dL (11.27-16.99) 08/21/24 16:51 Hct 49.4 % (37-53) 08/21/24 16:51 MCV 93.7 fl (82-101) 08/21/24 16:51 MCH 30.2 pg (27-33) 08/21/24 16: MCHC 32.2 g/dL (30-55) 08/21/24 16:51 RDW 12.8 % (12.1-15.1) 08/21/24 16:51 Plt Count 253 10^3/cmm (157-399) 08/21/24 16: MPV 10.4 fL (7.4-10.4) 08/21/24 16:51 Neut % (Auto) 57.4 % 08/21/24 16:51 Lymph % (Auto) 31.2 % 08/21/24 16:51 [place] % (Auto) 7.1 % 08/21/24 16:51 Eos % (Auto) 2.8 % 08/21/24 16:51 Baso % (Auto) 0.9 % 08/21/24:51 Neut # (Auto) 7.40 10^3/uL (1.8-7.7) 08/21/24 16:51 Lymph # (Auto) 4.0 10^3/uL (0.8-4.8) 08/21/24 16:51 [place] # (Auto) 0.9 10^3/uL (0.2-0.9) 08/21/24 16:51 Eos # (Auto) 0.4 10^3/uL (0.0-0.8) 08/21/24 16:51 Baso # (Auto) 0.1 10^3/uL (0.0-0.1) 08/21/24 16:51 Nucleated RBC % (auto) 0 % 08/21/24:51 Nucleated RBCs # 0.0 /100WBC 08/21/24 16:51 Sodium 147 mmol/L (136-145) H 08/21/24 16:51 Potassium 3.3 mmol/L (3.5-5.1) L 08/21/24 16:51 Chloride 108 mmol/L (98-107) H 08/21/24 16:51 Carbon Dioxide 24 mmol/L (22-29) 08/21/24 16:51 Anion Gap 18.3 (5-19) 08/21/24 16:51 BUN 12 mg/dL (6-20) 08/21/24 16:51 Creatinine 1.0 mg/dL (0.7-1.2) 08/21/24 16:51 GFR Calculation 91.0 mL/min (90-130) 08/21/24 16:51 Glucose 106 mg/dL (65-115) 08/21/24 16:51 Calculated Osmolality 304 mOsm/kg (285-295) H 08/21/24 16:51 Calcium 8.6 mg/dL (8.5-10.5) 08/21/24 16:51 Total Bilirubin 0.4 mg/dL (0.15-1.2) 08/21/24 16:51 AST 21 U/L (0-40) 08/21/24 16:51 ALT 9 U/L (0-41) 08/21/24 16:51 Alkaline Phosphatase 91 U/L (40-130) 08/21/24 16:51 Total Protein 7.6 g/dL (6.6-8.7) 08/21/24 16:51 Albumin 4.7 g/dL (3.5-5.2) 08/21/24 16:51 Globulin 2.9 g/dL (1.3-4.6) 08/21/24 16:51 Salicylates < 0.3 mg/dL (3-10) L 08/21/24 16:51 Acetaminophen < 5.0 ug/mL (10-30) L 08/21/24 16:51 Ethyl Alcohol 207 mg/dL (0-10) H 08/21/24 23:44 All radiology interpretation(s) finalized by discharge Discharge Plan Discharge Patient Disposition: Home Clinical Impression: Alcohol intoxication, Agitation Condition: Stable Prescriptions: No Action thiamine HCl (vitamin B1) 50 mg tablet 50 mg PO DAILY trazodone 50 mg tablet 50 mg PO .HS PRN (Reason: insomnia) naltrexone 50 mg tablet 50 mg PO DAILY Qty: 30 1RF aripiprazole [Abilify] 5 mg tablet 5 mg PO .HS Qty: 30 1RF fluoxetine [Prozac] 20 mg capsule 20 mg PO DAILY Qty: 30 1RF trazodone 50 mg Tablet 50 mg PO BEDTIME PRN (Reason: Sleep) 30 Days Qty: 30 1RF aripiprazole 10 mg Tablet 10 mg PO DAILY 30 Days Qty: 30 1RF Vitamin B-1 (mononitrate) 100 mg Tablet 100 mg PO DAILY 30 Days Qty: 30 1RF Discharge Orders: Discharge ED (Routine); Ordered 08/22/24 Ordered By: Blue Gandara Patient Instructions: Alcohol Intoxication Activity Restrictions/Additional Instructions: Your evaluated in ER. Your lab work shows you are intoxicated however your alcohol level is improving. You have been deemed fit for confinement if the need arises. You will be discharged from the ER. Please follow-up with your family practice physician within the next 7 days for further evaluation and treatment as needed. Thank you for choosing [facility] for your healthcare needs today. Please realize that you were seen in the emergency department and that we are providing you with an emergency medical screening exam and this may not be a complete and all exclusive of all testing and/or medical workup we may need to determine your element or severity of your illness. It is very important that you follow-up as instructed with your primary care provider or specialist for the additional evaluation and to discuss your medical treatment plan. You may return to the emergency department should you have concerns or if your condition changes or worsens in any way. Coding Level of Care Code ED Outreach Professional for Norma Villagomez
[2024-08-21 17:21] LABS: Alanine Aminotransferase 9 U/L (0-41); Albumin Level 4.7 g/dL (3.5-5.2); Alkaline Phosphatase 91 U/L (40-130); Anion Gap 18.3 (5-19); Aspartate Amino Transferase 21 U/L (0-40); Blood Urea Nitrogen 12 mg/dL (6-20); Calcium 8.6 mg/dL (8.5-10.5); Carbon Dioxide 24 mmol/L (22-29); Chloride 108 mmol/L (98-107); Globulin 2.9 g/dL (1.3-4.6); Glucose 106 mg/dL (65-115); Osmolality Calculated 304 mOsm/kg (285-295); Potassium 3.3 mmol/L (3.5-5.1); Sodium 147 mmol/L (136-145); Total Bilirubin 0.4 mg/dL (0.15-1.2); Total Protein 7.6 g/dL (6.6-8.7)
[2024-08-21 17:23] LABS: Acetaminophen < 5.0 ug/mL (10-30); Alcohol Level 325 mg/dL (0-10); Salicylate < 0.3 mg/dL (3-10)
--- NOTE | 2024-08-21 18:39 | ECG_ITS ---
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
[2024-08-21 18:48] VITALS: BP 111/72; PULSE 80; RESP 18; O2SAT 99
--- NOTE | 2024-08-21 18:52 | PC.NURSE ---
spoke to Dr. Jerry in regards to urine, urine sample not needed at this time. will reassess.
--- NOTE | 2024-08-21 18:55 | PC.NURSE ---
was told by charge nurse that pt once pt is awake, dr will reassess and that if pt is discharged that police department will be notified for pt to be taken into custody.
[2024-08-21 19:00] VITALS: PULSE 82; RESP 16; O2SAT 99
[2024-08-21 22:43] VITALS: BP 125/79; PULSE 86; RESP 16; O2SAT 97
[2024-08-21 22:50] VITALS: BP 124/79; PULSE 84; RESP 16; O2SAT 97
[2024-08-22 00:10] LABS: Alcohol Level 207 mg/dL (0-10)
[2024-08-22 00:26] VITALS: BP 126/72; PULSE 84; RESP 14; O2SAT 98
--- NOTE | 2024-08-22 00:27 | PC.NURSE ---
TOOK PT VS AND PT WAS SLEEPING AT THIS TIME, PT DID AROUSE WHEN SPOKE TO. PT DID THRASH AROUND IN BED, BUT THEN WENT BACK TO RESTING AND WAS BETTER.
[2024-08-22 00:58] VITALS: BP 126/72; PULSE 84; RESP 14; O2SAT 98
== END 2024-08-22 00:45 | disposition home or self-care (01) ==
PROVIDERS: Emergency Medicine; Physician Assistant; Emergency Provider Emergency Medicine
DX: F10.129 Alcohol abuse with intoxication, unspecified (principal); Y90.7 Blood alcohol level of 200-239 mg/100 ml; R45.1 Restlessness and agitation
CPT/HCPCS: 36415; 80053; 80307; 85025; 93005; 99284; J1200; J1630; J2060